=== PATIENT | male | born 1965 | race Caucasian/White ===

== ENCOUNTER 2018-10-08 09:02 | Emergency (ER) | payer SELFPAY ==
[~2018-10-08] VITALS: Ht 182.9 cm; Wt 95.7 kg
[~2018-10-08 09:02] MED LIST: ASPIRIN325 MG PO; ATORVASTATIN CA10 MG PO; CRESTOR10 MG PO
[2018-10-08] MEDS ORDERED: SODIUM CHLORIDE 0.9% 1000ML 1,000 ML IV STA (09:06)
[2018-10-08] MEDS ORDERED: SODIUM CHLORIDE 0.9% 1000ML 1,000 ML ONE (09:11)
[2018-10-08] MEDS ORDERED: KETOROLAC TROMETHAMINE 30 MG/ML VIAL IV ONE (09:15)
[2018-10-08] MEDS ORDERED: ONDANSETRON HCL INJ 2MG/ML 2ML 2 MG/ML VIAL IV ONE (09:15)
[2018-10-08] MEDS ORDERED: FAMOTIDINE 20 MG/2 ML VIAL IV ONE (09:15)
[2018-10-08] MEDS ORDERED: MORPHINE SULFATE INJ 4 MG/ML INJ 1ML IV ONE (09:19)
--- NOTE | 2018-10-08 09:19 | NUR ---
Bladder scan reveals 90 mL of urine. notified.
[2018-10-08 09:24] LABS: BASOPHILS # (AUTO) 0.1 (0.0-0.1); EOSINOPHILS # (AUTO) 0.2 (0.0-0.4); EOSINOPHILS % 2.4 % (0.0-6.0); HEMATOCRIT 49.3 % (38.2-49.6); HEMOGLOBIN 16.8 g/dL (14.0-18.0); LYMPHOCYTES # (AUTO) 2.9 (1.0-3.2); LYMPHOCYTES % 29.1 % (18.0-39.1); MEAN CORPUSCULAR HEMOGLOBIN 30.7 pg (28-32); MEAN CORPUSCULAR HGB CONC 34.1 g/dL (31-35); MONOCYTES # (AUTO) 0.7 (0.2-0.8); MONOCYTES % 7.2 % (4.4-11.3); NEUTROPHILS # (AUTO) 5.9 (2.1-6.9); NEUTROPHILS % 60.1 % (38.7-80.0); PLATELET COUNT 283 x10e3/uL (140-360); RED BLOOD COUNT 5.48 x10e6/uL (4.3-5.7); RED CELL DISTRIBUTION WIDTH 13.4 % (11.7-14.4)
[2018-10-08] MEDS ORDERED: MORPHINE SULFATE INJ 4 MG/ML INJ 1ML IV PRN (09:30)
[2018-10-08 09:43] LABS: ALBUMIN 4.4 g/dL (3.5-5.0); ALBUMIN/GLOBULIN RATIO 1.2 (0.8-2.0); ANION GAP 16.8 mmol/L (8-16); CALCIUM 10.1 mg/dL (8.4-10.2); CREATININE, SERUM 1.39 mg/dL (0.72-1.25); POTASSIUM 3.8 mmol/L (3.5-5.1)
[2018-10-08 10:22] LABS: BILIRUBIN,URINE SMALL (NEGATIVE); CLARITY,URINE CLOUDY (CLEAR); COLOR,URINE YELLOW (YELLOW); KETONES,URINE TRACE (NEGATIVE); LEUKOCYTE ESTERASE ,URINE NEGATIVE (NEGATIVE); NITRITE,URINE NEGATIVE (NEGATIVE); PROTEIN,URINE DIPSTICK 2+ (NEGATIVE); URINE UROBILINOGEN 1 mg/dL (0.2 - 1)
[2018-10-08 10:42] LABS: BACTERIA,URINE RARE /HPF; MUCUS,URINE FEW (RARE); RBC,URINE 21-50 /HPF (0-5)
--- NOTE | 2018-10-08 12:50 | Diagnostic Imaging Report ---
EXAM: CT Abdomen and Pelvis WITHOUT contrast INDICATION: Left flank pain, query stone, polynephritis. COMPARISON: None. TECHNIQUE: Abdomen and pelvis were scanned utilizing a multidetector helical scanner from the lung base to the pubic symphysis without administration of IV contrast. Absence of intravenous contrast decreases sensitivity for detection of focal lesions and vascular pathology. Coronal and sagittal reformations were obtained. Routine protocol was performed. IV CONTRAST: None. ORAL CONTRAST: Water RADIATION DOSE: Total DLP: 520 mGy*cm Dose modulation, iterative reconstruction, and/or weight based adjustment of the mA/kV was utilized to reduce the radiation dose to as low as reasonably achievable. COMPLICATIONS: None FINDINGS: LINES and TUBES: None. LOWER THORAX: Unremarkable HEPATOBILIARY: Calcified hepatic granulomas. No biliary ductal dilation. GALLBLADDER: No radio-opaque stones or sludge. No wall thickening. SPLEEN: Calcified splenic granulomas. No splenomegaly. PANCREAS: No focal masses or ductal dilatation. ADRENALS: No adrenal nodules KIDNEYS/URETERS: There is a 3 mm left distal ureteral stone (series 3, image 151). There is minimal left hydronephrosis and hydroureter. No right hydronephrosis. There is a punctate bilateral 1 to 2 mm nonobstructing renal stones. GI TRACT: No abnormal distention, wall thickening, or evidence of bowel obstruction. Appendix is normal. PELVIC ORGANS/BLADDER: Unremarkable. LYMPH NODES: No lymphadenopathy. VESSELS: Unremarkable. PERITONEUM / RETROPERITONEUM: No free air. There is mesenteric stranding and trace mesenteric free fluid. There is prominence of the mesenteric fat. There are mildly prominent but nonenlarged mesenteric lymph nodes, measuring up to 7 mm short axis. BONES: Unremarkable. SOFT TISSUES: Unremarkable. IMPRESSION: Obstructing 3 mm left distal ureteral stone with minimal left hydronephrosis and hydroureter. Nonobstructing 1 to 2 mm bilateral renal stones. Mesenteric inflammatory changes and fatty proliferation with mildly prominent mesenteric lymph nodes. The differential includes mesenteric panniculitis. Suggest follow-up abdominal CT in 3 months to assess for resolution and exclude underlying malignancy. Signed by: Dr. Tomi Campos MD on 10/08/2018 10:58 AM
== END 2018-10-08 12:13 | disposition home or self-care (01) ==
LOC: ER 09:02
DX: R10.32 Left lower quadrant pain (principal); R11.0 Nausea; R31.9 Hematuria, unspecified; N20.0 Calculus of kidney; N20.1 Calculus of ureter
CPT/HCPCS: 36415; 74176; 80053; 81001; 85025; 99284; J1885; J2270; J2405; J7030

== ENCOUNTER 2018-10-09 20:08 | Emergency (ER) | payer SELFPAY ==
[~2018-10-09] VITALS: Ht 182.9 cm; Wt 95.7 kg
--- OUTSIDE RECORDS SUMMARY | 2018-10-09 20:11 | XMS REPORT ---
Author Author [facility] Address Unknown Phone Unavailable Care Team Providers Care Hotel Administrative Assistant Name Role Phone Paras BELTRAN Unavailable Unavailable Problems This patient has no known problems. Allergies, Adverse Reactions, Alerts This patient has no known allergies or adverse reactions. Medications This patient has no known medications. Results Test Description Test Time Test Comments Text Results Atomic Results Result Comments CT ABDOMEN/PELVIS WO 2018-10-08 10:49:00 [facility] [address] [place] [address] Patient Name: MAYTE TRENT MR #: [id number] : 1965 Age/Sex: 53/M Req #: [id number] Adm Physician: Ordered by: DRE BELTRAN MD Report #: [id number] Location: ER Room/Bed: Procedure: [id number] CT/CT ABDOMEN/PELVIS WO Exam Date: 10/08/18 Exam Time: 0940 REPORT STATUS: Signed EXAM: CT Abdomen and Pelvis WITHOUT contrast INDICATION: Left flank pain, query stone, polynephritis. COMPARISON: None. TECHNIQUE: Abdomen and pelvis were scanned utilizing a multidetector helical scanner from the lung base to the pubic symphysis without administration of IV contrast. Absence of intravenous contrast decreases sensitivity for detection of focal lesions and vascular pathology. Coronal and sagittal reformations were obtained. Routine protocol was performed. IV CONTRAST: None. ORAL CONTRAST: Water RADIATION DOSE: Total DLP: 520 mGy*cm Dose modulation, iterative reconstruction, and/or weight based adjustment of the mA/kV was utilized to reduce the radiation dose to as low as reasonably achievable. COMPLICATIONS: None FINDINGS: LINES and TUBES: None. LOWER THORAX: Unremarkable HEPATOBILIARY: Calcified hepatic granulomas. No biliary ductal dilation. GALLBLADDER: No radio-opaque stones or sludge. No wall thickening. SPLEEN: Calcified splenic granulomas. No splenomegaly. PANCREAS: No focal masses or ductal dilatation. ADRENALS: No adrenal nodules KIDNEYS/URETERS: There is a 3 mm left distal ureteral stone (series 3, image 151). There is minimal left hydronephrosis and hydroureter. No right hydronephrosis. There is a punctate bilateral 1 to 2 mm nonobstructing renal stones. GI TRACT: No abnormal distention, wall thickening, or evidence of bowel obstruction. Appendix is normal. PELVIC ORGANS/BLADDER: Unremarkable. LYMPH NODES: No lymphadenopathy. VESSELS: Unremarkable. PERITONEUM / RETROPERITONEUM: No free air. There is mesenteric stranding and trace mesenteric free fluid. There is prominence of the mesenteric fat. There are mildly prominent but nonenlarged mesenteric lymph nodes, measuring up to 7 mm short axis. BONES: Unremarkable. SOFT TISSUES: Unremarkable. IMPRESSION: Obstructing 3 mm left distal ureteral stone with minimal left hydronephrosis and hydroureter. Nonobstructing 1 to 2 mm bilateral renal stones. Mesenteric inflammatory changes and fatty proliferation with mildly prominent mesenteric lymph nodes. The differential includes mesenteric panniculitis. Suggest follow-up abdominal CT in 3 months to assess for resolution and exclude underlying malignancy. Signed by: Dr. Zaria Campos MD on 10/08/2018 10:58 AM Dictated By: ZARIA CAMPOS MD [id number] Transcribed By: PEGGY on 10/08/18 3805 COPY TO: DRE BELTRAN MD
[2018-10-09] MEDS ORDERED: KETOROLAC TROMETHAMINE 60 MG/2 ML VIAL IM ONE ×2 (21:00)
== END 2018-10-09 22:28 | disposition home or self-care (01) ==
LOC: ER 20:08
DX: R10.9 Unspecified abdominal pain (principal); R11.2 Nausea with vomiting, unspecified; M54.5 Low back pain; N20.1 Calculus of ureter
CPT/HCPCS: 99282; J1885